=== PATIENT | female | born 1995 | race African-American/Black ===

== ENCOUNTER 2022-10-01 17:14 | Emergency (ER) | payer OTHER ==
[~2022-10-01] VITALS: Ht 165.1 cm; Wt 56.0 kg
[2022-10-01 17:20] VITALS: BP 132/75
== END 2022-10-01 19:53 | disposition home or self-care (01) ==
LOC: ER 17:14
DX: Z59.9 Problem related to housing and economic circumstances, unspecified (principal); Z00.00 Encounter for general adult medical examination without abnormal findings
CPT/HCPCS: 99283

== ENCOUNTER 2023-06-18 08:56 | Emergency (ER) | payer MEDICAID, OTHER ==
[~2023-06-18] VITALS: Ht 152.4 cm; Wt 59.0 kg
[2023-06-18 08:58] VITALS: BP 124/73; PULSE 66; RESP 16; TEMP 98.1; O2SAT 100
[2023-06-18 09:50] LABS: BASOPHILS % 0.3 % (0.0-2.0); EOSINOPHILS % 0.1 % (0.0-5.0); HEMATOCRIT. 35.5 % (36.0-48.0); HEMOGLOBIN. 11.6 g/dL (12.0-16.0); LYMPHOCYTES % 21.3 % (20.0-50.0); MEAN CORPUSCULAR HEMOGLOBIN 30.4 pg (28.0-32.0); MEAN CORPUSCULAR HGB CONC 32.6 g/dL (31.0-37.0); MEAN CORPUSCULAR VOLUME 93.3 fL (81.0-99.0); MEAN PLATELET VOLUME 6.8 fl (7.4-10.4); MONOCYTES % 5.8 % (2.0-8.0); NEUTROPHILS % 72.5 % (40.0-76.0); PLATELET 316 x1000/uL (130-400); RED CELL DISTRIBUTION WIDTH 13.4 % (11.6-14.6); WHITE BLOOD COUNT 4.7 x1000/uL (4.5-11.0)
[2023-06-18] MEDS: ONDANSETRON 4MG ODT PO STA (09:56)
[2023-06-18] MEDS: ACETAMINOPHEN 325MG TABLET PO ONE (09:56)
[2023-06-18 10:04] LABS: PROTHROMBIN TIME 11.4 sec (9.6-11.0)
[2023-06-18 10:10] LABS: HCG SCREEN NEGATIVE
[2023-06-18 10:17] LABS: ALANINE AMINOTRANSFERASE 8 IU/L (10-49); ALBUMIN 5.3 g/dL (3.2-4.8); ASPARTATE AMINOTRANSFERASE 20 IU/L (<34); BILIRUBIN TOTAL 0.5 mg/dL (0.1-1.0); CALCIUM 9.6 mg/dL (8.7-10.4); CARBON DIOXIDE 19 mEq/L (21-32); CHLORIDE 103 mEq/L (98-107); CREATININE 0.9 mg/dL (0.6-1.0); GLUCOSE 107 mg/dL (70-105); POTASSIUM 4.1 mEq/L (3.5-5.1); PROTEIN TOTAL 8.6 g/dL (6.0-8.3); SODIUM 135 mEq/L (136-145); UREA NITROGEN BLOOD 11 mg/dL (9-23)
[2023-06-18] MEDS ORDERED: DICY20TA2 MT (12:02)
[2023-06-18] MEDS ORDERED: ONDA4TAB11 PO (12:02)
[2023-06-18 12:12] LABS: CLARITY URINE CLEAR (CLEAR); COLOR URINE YELLOW (YELLOW); GLUCOSE URINE NEGATIVE (NEGATIVE); KETONES URINE 4+ (NEGATIVE); LEUKOCYTE ESTERASE URINE NEGATIVE (NEGATIVE); NITRITE URINE NEGATIVE (NEGATIVE); OCCULT BLOOD URINE NEGATIVE (NEGATIVE); PH URINE 5.5 (4.5-8.0); PROTEIN URINE 1+ (NEGATIVE); SPECIFIC GRAVITY URINE 1.028 (1.005-1.030)
[2023-06-18] MEDS: DICYCLOMINE HCL 20MG TABLET PO SCH (12:19)
[2023-06-18 12:31] LABS: BACTERIA URINE 1+; RBC URINE 0-2 /hpf (0-2); SQUAMOUS EPITHELIAL CELL URINE 1+ /lpf (RARE/1+); YEAST URINE NONE SEEN
== END 2023-06-18 13:22 | disposition home or self-care (01) ==
LOC: ER 08:56
DX: R11.2 Nausea with vomiting, unspecified (principal); J45.909 Unspecified asthma, uncomplicated
CPT/HCPCS: 99284; 80053; 81003; 81025; 84703; 83690; 85025; 85610; 36415; Q0162

== ENCOUNTER 2023-09-19 02:29 | Emergency (ER) | payer OTHER ==
[~2023-09-19] VITALS: Ht 162.6 cm; Wt 54.0 kg
[~2023-09-19 02:29] MED LIST: DICY20TA2 MT; ONDA4TAB11 PO
[2023-09-19 02:36] VITALS: BP 121/74; PULSE 82; RESP 16; TEMP 98; O2SAT 97
== END 2023-09-19 05:57 | disposition left against medical advice (07) ==
LOC: ER 02:29
DX: F15.90 Other stimulant use, unspecified, uncomplicated (principal)
CPT/HCPCS: 99283